=== PATIENT | male | born 1965 | race Caucasian/White ===

== ENCOUNTER → 2022-02-20 15:36 | Outpatient (CLI) | payer BC, SELFPAY ==
--- NOTE | ~2022-02-20 | XR_ITS ---
EXAM: XR knee RT 3V, XR knee LT 3V DATE: 02/20/2022 16:09 (accession [id number]), 02/20/2022 16:08 (accession [id number]) HISTORY: PAIN IN LEFT AND RIGHT KNEE . COMPARISON: None available. FINDINGS: Normal mineralization. No fracture or dislocation. No lytic or blastic lesion. Mild bilate ral medial joint space narrowing. Mild bilateral tricompartmental osteophytosis. No erosion or perios teal change. Soft tissues within normal limits. Small volume left and moderate volume right joint flu id. IMPRESSION: Mild tricompartmental knee osteoarthritis. Moderate right and mild left knee joint effusi ons. Reviewed, dictated and finalized at location K. IMPRESSION: Mild tricompartmental knee osteoarthritis. Moderate right and mild left knee joint effusions.
== END ==
PROVIDERS: PCP Physician Assistant; Visit Provider Physician Assistant
DX: M17.0 Bilateral primary osteoarthritis of knee (principal); M25.462 Effusion, left knee; M25.461 Effusion, right knee
CPT/HCPCS: 73562